=== PATIENT | male | born 1970 | race Caucasian/White ===

== ENCOUNTER 2018-07-23 05:20 | Inpatient (IN) ==
[2018-07-23] MEDS ORDERED: Morphine Inj 4 MG/ML Vial IV.PUSH PRN ×2 (10:48)
[2018-07-23] MEDS ORDERED: Acetaminophen 325 MG Tablet PO PRN ×2 (10:48)
[2018-07-23] MEDS ORDERED: Naloxone Inj 0.4 MG/ML Vial IV.PUSH PRN (10:48)
[2018-07-23] MEDS ORDERED: Dextrose 50% in Water 50 ML Vial IV.PUSH PRN (10:48)
[2018-07-23] MEDS ORDERED: Bisacodyl 10 MG Supp RECTAL PRN (10:48)
[2018-07-23] MEDS: metroNIDAZOLE 500 MG Tablet PO SCH ×2 (14:15→21:17)
[2018-07-23] MEDS: Sod Chloride 0.9% Inj 1,000 ML IV.CONT SCH ×3 (14:16→23:15)
[2018-07-23] MEDS: Ciprofloxacin 400 MG/200 ML 400 MG/200 ML PIGGYBACK IV.SIG SCH (14:17)
[2018-07-23] MEDS: Insulin NovoLOG Aspart Correctional Sugar Inj SQ SCH ×3 (14:17→21:22)
--- NOTE | 2018-07-23 15:00 | P.HPIM ---
History of Present Illness Primary Care Physician: No Primary Care Physician Chief Complaint: Abdominal pain with nausea vomiting History of Present Illness: This 48-year-old white male with a history of diabetes mellitus type 2 who presented to the emergency room with acute onset of sharp stabbing right upper quadrant abdominal pain with radiation towards his back since 8:00 last night associated with intractable nausea and nonbilious vomiting. Despite multiple doses of IV pain medication in the emergency room, patient still had persistent abdominal pain with no relief. He denies any unusual food intake over the past few weeks. He reports similar episode a month ago when he was diagnosed with cholelithiasis at [facility]. He was sent home on pain medication but had this recurrent sharp pain. He denies any symptoms of constipation or diarrhea. He denies symptoms of dysuria urinary frequency or hematuria. Diagnosis (1) Acute cholecystitis: Inpatient Certification Inpatient Certification: I certify that the inpatient services were ordered in accordance with Medicare regulations governing the order. This includes certification that hospital inpatient services are reasonable and necessary and in the case of services not specified as inpatient-only under 42 CFR 419.22(n), that they are appropriately provided as inpatient services in accordance to with the 2-midnight benchmark under 43 CFR 412.3(e) Estimated Total Length of Stay (Days): 2 Plans for Post Hospital Care: Home Review of Systems Constitutional: Reports as per HPI, Denies chills, Denies fever(s) and Denies headache(s) Eyes: Denies blurry vision, Denies change in vision and Denies eye pain Ears, Nose, Mouth, and Throat: Denies abnormal hearing, Denies headache(s), Denies mouth pain, Denies nasal congestion, Denies neck pain and Denies sore throat Cardiovascular: Denies chest pain, Denies pedal edema, Denies palpitations and Denies dyspnea Respiratory: Denies cough and Denies dyspnea Gastrointestinal: Reports as per HPI, Reports abdominal pain, Denies melena, Denies hematochezia, Denies change in bowel habits, Denies constipation, Denies loose stools, Reports nausea and Reports vomiting Musculoskeletal: Denies back pain, Denies myalgias, Denies arthralgias, Denies neck pain and Denies numbness Skin/Breast: Denies new lesions and Denies rash Neurologic: Denies abnormal hearing, Denies headache(s), Denies focal weakness, Denies memory loss and Denies numbness Psychiatric: Denies anxiety, Denies depression and Denies memory loss Endocrine: Denies cold intolerance, Denies heat intolerance and Denies palpitations Hematologic/Lymphatic: Denies easy bleeding and Denies easy bruising PMFSH History History Provided By: Patient Medical History Medical History Diabetes (Chronic) Hx of renal calculi (Chronic) Surgical History Surgical History H/O lithotripsy (Chronic) Family History Family History Mother Esophageal cancer Social History Social History Substance History: No History of Abuse Second Hand Smoke Exposure: No Smoking Status: Never smoker How Often Do You Have a Drink Containing Alcohol: Never Recent Travel in [place] within the Last 8 Weeks: No Recent Out of Country Travel within the Last 8 Weeks: No Medications and Allergies Allergies Allergy/AdvReac Type Severity Reaction Status Date / Time No Known Allergies Allergy Verified 07/23/18 05:32 Home Medications Medication Instructions Recorded Confirmed Type metformin 500 mg PO QPM 07/23/18 07/23/18 History Active Medications: Active Medications Acetaminophen (Tylenol) 650 mg PO Q4H PRN PRN Reason: Temp > 100.4 Acetaminophen (Tylenol) 650 mg PO Q6HR PRN PRN Reason: PAIN SCALE 1 TO 2 Hydrocodone Bitart/Acetaminophen (Laurel 5/325) 1 tab PO Q4H PRN PRN Reason: PAIN SCALE 3 TO 5 Hydrocodone Bitart/Acetaminophen (Laurel 7.5/325) 1 tab PO Q4H PRN PRN Reason: PAIN SCALE 6 TO 10 Last Admin: 07/23/18 14:15 Dose: 1 tab Al Hydroxide/Mg Hydroxide (Milk Of Magnesia Liq) 30 ml PO Q12H PRN PRN Reason: Mild Constipation Bisacodyl (Dulcolax Supp) 10 mg RECTAL DAILY PRN PRN Reason: SEVERE CONSITIPATION Dextrose (D50w Vial) 50 ml IV.PUSH UNSCH PRN PRN Reason: PER HYPOGLYCEMIA PROTOCOL Glucagon (Glucagon Inj) 1 mg OTHER PRN PRN PRN Reason: for Hypoglycemia Protocol Sodium Chloride (Ns Inj) 1,000 mls @ 100 mls/hr IV.CONT .Q10H [place] Last Admin: 07/23/18 14:16 Dose: 100 mls/hr Ciprofloxacin/Dextrose (Cipro 400 Mg/200 Ml Inj) 400 mg in 200 mls @ 200 mls/ hr IV.SIG Q12H [facility] Last Admin: 07/23/18 14:17 Dose: 200 mls/hr Insulin Aspart (Novolog Insulin Correctional Sugar Inj) 0 unit SQ ACHS [facility]; Protocol Last Admin: 07/23/18 14:17 Dose: Not Given Lactulose (Lactulose Liq) 30 ml PO DAILY PRN PRN Reason: SEVERE CONSITIPATION Metronidazole (Flagyl) 500 mg PO Q8HR [facility] Last Admin: 07/23/18 14:15 Dose: 500 mg Morphine Sulfate (Morphine Inj) 2 mg IV.PUSH Q3H PRN PRN Reason: PAIN 3-5; IF UABLE TO TAKE PO Morphine Sulfate (Morphine Inj) 4 mg IV.PUSH Q3H PRN PRN Reason: PAIN 6-10;IF UNABLE TO TAKE PO Naloxone HCl (Narcan Inj) 0.4 mg IV.PUSH UNSCH PRN PRN Reason: SEE LABEL COMMENTS Ondansetron HCl (Zofran Inj) 4 mg IV.PUSH Q6H PRN PRN Reason: NAUSEA OR VOMITING Sennosides (Senokot) 17.2 mg PO Q12H PRN PRN Reason: Moderate Constipation Sodium Chloride (Ns Flush) 2 ml IV.FLUSH BID [place] Sodium Chloride (Ns Flush) 2 ml IV.FLUSH PRN PRN PRN Reason: FLUSH AFTER USING IV ACCESS Physical Exam Vital signs: Last Vital Signs Temp 98.0 F 07/23/18 14:48 Pulse 73 07/23/18 14:48 Resp 20 07/23/18 14:48 BP 128/85 07/23/18 14:48 Pulse Ox 95 07/23/18 14:48 Narrative: GENERAL: Well-nourished well-developed pleasant male in no acute distress laying in bed. SKIN: Warm and dry. HEAD: Atraumatic. Normocephalic. EYES: Pupils equal and round. No scleral icterus. No injection or drainage. ENT: No nasal bleeding or discharge. Mucous membranes pink and moist. NECK: Trachea midline. No JVD. CARDIOVASCULAR: Regular rate and rhythm. RESPIRATORY: No accessory muscle use. Clear to auscultation. Breath sounds equal bilaterally. GASTROINTESTINAL: Abdomen soft, right upper quadrant abdominal pain on palpation with no rebound guarding, nondistended, normoactive bowel sounds MUSCULOSKELETAL: Extremities without clubbing, cyanosis, or edema. No obvious deformities. NEUROLOGICAL: Awake and alert to person place time. No obvious cranial nerve deficits. Motor grossly within normal limits. Five out of 5 muscle strength in the arms and legs. Normal speech. PSYCHIATRIC: Appropriate mood and affect; insight and judgment normal. Results Labs Labs: CBC showed white blood elevation 12,000 BMP reviewed with elevated sugar 146, LFTs within normal limits, lipase [address] abdomen pelvis revealed cholelithiasis moderate distended gallbladder. Small nonobstructing renal stones seen bilaterally. Small umbilical hernia containing mesenteric fat. Gallbladder ultrasound revealed echogenic liver with severe hepatic steatosis and hepatocellular dysfunction, cholelithiasis Caprini VTE Risk Assessment Caprini VTE Risk Assessment: No/Low Risk (score <= 1) Caprini Risk Assessment Model: Point Value = 1 Point Value = 2 Point Value = 3 Point Value = 5 Age 41-60 Minor surgery BMI > 25 kg/m2 Swollen legs Varicose veins or History of unexplained or recurrent spontaneous Oral contraceptives or hormone replacement Sepsis (< 1 month) Serious lung disease, including pneumonia (< 1 month) Abnormal pulmonary function Acute myocardial infarction Congestive heart failure (< 1 month) History of inflammatory bowel disease Medical patient at bed rest Age 61-74 Arthroscopic surgery Major open surgery (> 45 min) Laparoscopic surgery (> 45 min) Malignancy Confined to bed (> 72 hours) Immobilizing plaster cast Central venous access Age >= 75 History of VTE Family history of VTE Factor V Leiden Prothrombin [id number] Lupus anticoagulant Anticardiolipin antibodies Elevated serum homocysteine Heparin-induced thrombocytopenia Other congenital or acquired thrombophilia Stroke (< 1 month) Elective arthroplasty Hip, pelvis, or leg fracture Acute spinal cord injury (< 1 month) Prophylaxis Regimen: Total Risk Factor Score Risk Level Prophylaxis Regimen 0-1 Low Early ambulation 2 Moderate Order ONE of the following: *Sequential Compression Device (SCD) *Heparin 5000 units SQ BID 3-4 Higher Order ONE of the following medications: *Heparin 5000 units SQ TID *Enoxaparin/Lovenox 40 mg SQ daily (WT < 150 kg, CrCl > 30 mL/min) *Enoxaparin/Lovenox 30 mg SQ daily (WT < 150 kg, CrCl > 10-29 mL/min) *Enoxaparin/Lovenox 30 mg SQ BID (WT < 150 kg, CrCl > 30 mL/min) AND/OR *Sequential Compression Device (SCD) 5 or more Highest Order ONE of the following medications: *Heparin 5000 units SQ TID (Preferred with Epidurals) *Enoxaparin/Lovenox 40 mg SQ daily (WT < 150 kg, CrCl > 30 mL/min) *Enoxaparin/Lovenox 30 mg SQ daily (WT < 150 kg, CrCl > 10-29 mL/min) *Enoxaparin/Lovenox 30 mg SQ BID (WT < 150 kg, CrCl > 30 mL/min) AND *Sequential Compression Device (SCD) Assessment and Plan (1) Acute cholecystitis: Code(s): K81.0 - Acute cholecystitis Status: Acute Plan 43-year-old white male with a history of cholelithiasis, diabetes mellitus type 2 presents emergency room with intractable right upper quadrant abdominal pain associated with intractable nausea and vomiting despite giving multiple doses of IV pain medication in the emergency room Cholelithiasis with suspected acute cholecystitis -IV fluid hydration for supportive care, start IV Cipro and p.o. Flagyl, continue pain control with IV morphine, IV antiemetics. Obtain general surgery consultation to evaluate for lap cholecystectomy. Diabetes mellitus, type II, controlled, [id number] -due to n.p.o. status hold home metformin. Continue blood sugar monitoring with sliding scale insulin.
[2018-07-23] MEDS ORDERED: Influenza (Quadrivalent) Vaccine 0.5 ML Syringe IM ONE (16:00)
--- NOTE | 2018-07-23 17:52 | MB ---
cc: Rony Kelley MD DATE: 07/23/2018 PERSON REQUESTING CONSULTATION: Vanessa Amin MD REASON FOR CONSULTATION: Acute cholecystitis. HISTORY OF PRESENT ILLNESS: The patient is a 48-year-old male who was transferred to [facility] from [place] [facility] for acute cholecystitis. The patient developed severe epigastric pain, 8-10/10 last night around 8 p.m. The patient has never had pain like this prior, but states only previous abdominal pain was history of multiple kidney stones, of which he has had approximately 20. The patient says the pain is different than his previous kidney stones. It was brought on by fatty food. It is not relieved except for anything but strong narcotics in the emergency department. The patient underwent a workup including a CT scan, which showed significant inflammation of the gallbladder as well as a mildly elevated white blood cell count. This is concerning for acute cholecystitis and the patient was transferred for further evaluation and treatment. REVIEW OF SYSTEMS: A 12-point review of systems is conducted with the patient and is negative except for pertinent positives mentioned above in history of present illness. PAST MEDICAL HISTORY: History of kidney stones, type 2 diabetes. PAST SURGICAL HISTORY: History of lithotripsies. ALLERGIES: NO KNOWN DRUG ALLERGIES. MEDICATIONS: 1. Protonix 2. Metformin. SOCIAL HISTORY: Denies alcohol, tobacco or illicit drug use. FAMILY HISTORY: Reviewed. History of diabetes, otherwise negative. PHYSICAL EXAMINATION: VITAL SIGNS: Temperature 98.1 degrees, pulse rate of 76, respiratory rate 22, blood pressure 165/92, O2 saturation 98%. GENERAL: The patient is a well-developed, well-nourished, 48-year-old male in no acute distress. HEENT: Head is normocephalic, atraumatic. Pupils are round and reactive, accommodate to light. Sclerae are anicteric. Oral cavity are clear. Airways patent. NECK: Supple. No JVD. LUNGS: Breath sounds present bilaterally. Nonlabored breathing pattern. HEART: Regular rate and rhythm. PMI is nondisplaced. ABDOMEN: Soft, tender to palpation in the right upper quadrant. Positive Martinez sign with deep palpation and with inspiration. There are no surgical scars. No hernias. No ascites or organomegaly. BACK: No CVA tenderness. EXTREMITIES: No clubbing, cyanosis or edema. Warm and perfused. Peripheral pulses intact. NEUROLOGIC: Shows patient is awake, alert and oriented x 3. Nonfocal peripheral exam. Cranial nerves 2-12 are grossly intact. Mood, judgment and insight are intact. LABORATORY VALUES: White blood cell count 12.7, hemoglobin 14.8. Liver function tests including bilirubin and alkaline phosphatase are all within normal limits. IMAGING: CT scan of the abdomen and pelvis as well as an ultrasound both show cholelithiasis. ASSESSMENT AND PLAN: The patient is a 48-year-old male with likely early to mild acute cholecystitis. I discussed acute cholecystitis with the patient including the differential diagnosis and treatment, options including surgery and nonoperative management. I discussed laparoscopic cholecystectomy including the risks, benefits, and alternatives, as well as the procedure in detail. I discussed the recovery and answered all questions to his satisfaction. We will proceed to the operating room in the next 24-48 hours, based on the operating room availability for laparoscopic cholecystectomy. We will place an order for consent and make the patient n.p.o. after midnight, in order to give us the option of operating tomorrow based on surgeon and operating room availability. Thank you very much for this consultation. MD LEAH Riddle/celestina , 05:26 PM , 05:34 PM
[2018-07-23] MEDS ORDERED: Sodium Chlor 0.9% Inj 500 ML IV.SIG SCH (19:00)
[2018-07-23] MEDS ORDERED: Chlorhexidine Gluconate 2% 1 Pack (2 Cloths) TOPICAL ONE (19:00)
[2018-07-23] MEDS ORDERED: Metoprolol Tartrate 25 MG Tablet PO ONE (19:00)
[2018-07-24] MEDS: Ciprofloxacin 400 MG/200 ML 400 MG/200 ML PIGGYBACK IV.SIG SCH ×2 (01:00→12:28)
[2018-07-24] MEDS: metroNIDAZOLE 500 MG Tablet PO SCH ×3 (05:24→21:41)
[2018-07-24] MEDS: Morphine Inj 4 MG/ML Vial IV.PUSH PRN ×3 (08:54→21:40)
--- NOTE | 2018-07-24 09:48 | ECG ---
Date Performed: 07/24/2018 Time Performed: 04:15:03 PTAGE: 48 years EKG: Sinus rhythm NORMAL ECG NO PREVIOUS TRACING DOCTOR: Miguelito Barrios Interpretating Date/Time 07/24/2018 09:47:12
[2018-07-24] MEDS: Insulin NovoLOG Aspart Correctional Sugar Inj SQ SCH ×4 (11:07→20:43)
--- NOTE | 2018-07-24 11:29 | P.PNIM ---
Subjective Interval history: Still with right upper quadrant abdominal pain however not as severe as when she he came to the emergency room. Mild nausea no active vomiting. Did tolerate some liquids yesterday now n.p.o. for surgery. Physical Exam Vital signs: Last Vital Signs Temp 98.2 F 07/24/18 07:41 Pulse 75 07/24/18 07:41 Resp 20 07/24/18 07:41 BP 117/77 07/24/18 07:41 Pulse Ox 98 07/24/18 07:41 Intake & Output 07/22/18 07/23/18 07/24/18 07/25/18 06:59 06:59 06:59 06:59 Intake Total 2515 / 2515 1000 / 1000 Output Total 1700 / 1700 Balance 815 / 815 1000 / 1000 Weight 94.801 kg Narrative: GENERAL: Well-nourished well-developed pleasant male in no acute distress laying in bed. CARDIOVASCULAR: Regular rate and rhythm. RESPIRATORY: No accessory muscle use. Clear to auscultation. Breath sounds equal bilaterally. GASTROINTESTINAL: Abdomen soft, mild right upper quadrant abdominal pain on palpation with no rebound guarding, nondistended, normoactive bowel sounds MUSCULOSKELETAL: Extremities without clubbing, cyanosis, or edema. No obvious deformities. NEUROLOGICAL: Awake and alert to person place time. Assessment and Plan (1) Acute cholecystitis: Code(s): K81.0 - Acute cholecystitis Status: Inactive Plan 43-year-old white male with a history of cholelithiasis, diabetes mellitus type 2 presents emergency room with intractable right upper quadrant abdominal pain associated with intractable nausea and vomiting despite giving multiple doses of IV pain medication in the emergency room Cholelithiasis with suspected acute cholecystitis -IV fluid hydration for supportive care, continue IV Cipro and p.o. Flagyl, continue pain control with IV morphine, IV antiemetics. for lap cholecystectomy with general surgery. Diabetes mellitus, type II, controlled, [id number] -due to n.p.o. status hold home metformin. Continue blood sugar monitoring with sliding scale insulin. DVT prophylaxisSCDs Progress Note: Quality VTE Deep Vein Thrombosis/Pulmonary Embolism Present on Admission: No
[2018-07-24] MEDS: Sod Chloride 0.9% Inj 1,000 ML IV.CONT SCH ×2 (12:28→17:39)
[2018-07-24] MEDS ORDERED: Bupivacaine/Epinephrine Inj 0.25% 50 ML Vial ONE (13:41)
[2018-07-24] MEDS ORDERED: fentaNYL Citrate Inj 100 MCG/2 ML Ampul ONE (16:32)
[2018-07-24] MEDS ORDERED: *morphine SULFATE 4 MG/ML PERIprocedure ONLY ONE ×3 (16:39→17:20)
[2018-07-24] MEDS ORDERED: *Meperidine Inj 25 MG/ML Vial PERIprocedural Use ONLY ONE (16:46)
[2018-07-24] MEDS ORDERED: *Promethazine Inj 25 MG/ML Vial PERIprocedural use ONLY ONE (16:56)
--- NOTE | 2018-07-24 17:26 | MP ---
cc: Rony Kelley MD DATE OF OPERATION: 07/24/2018 PREOPERATIVE DIAGNOSIS: Acute cholecystitis. POSTOPERATIVE DIAGNOSIS: Acute cholecystitis. PROCEDURE PERFORMED: Laparoscopic cholecystectomy: SURGEON: Rony Kelley MD INGREDIENT HANDLER: Staff. ANESTHESIA: General. FINDINGS: No acute findings in the abdomen on diagnostic laparoscopy with the exception of some inflammatory changes of the gallbladder with a large gallstone. ESTIMATED BLOOD LOSS: Less than 10 mL. COMPLICATIONS: None. INDICATIONS FOR PROCEDURE: The patient is a 48-year-old male who developed severe epigastric abdominal pain, which prompted a presentation to the emergency room at [facility]. Workup did reveal a gallstone with significant inflammation around the gallbladder concerning for acute cholecystitis. The patient is recommended to undergo laparoscopic cholecystectomy after treatment and the risks, benefits and alternatives of surgery were discussed with the patient in detail prior to the procedure, and the patient agreed to undergo the procedure. PROCEDURE: The patient was taken to the operating room and placed in the supine position and placed under general endotracheal anesthesia. The patient's abdomen was shaved, prepped and draped in a sterile fashion. Timeout was performed. The abdomen was entered with the Jen technique with a curvilinear incision just above the umbilicus. We directly opened the fascia the midline and entered the abdomen under direct visualization and then we placed a 10 mm port. We placed the laparoscope and insufflated the abdomen. We surveyed the abdomen. There was no evidence of any complication from her injury. There was no intra-abdominal pathology with the exception of a thickened and discolored gallbladder consistent with acute cholecystitis. We initially placed three 5 mm ports in the right upper quadrant, all under direct visualization of the laparoscope. However, of note, later in the procedure, we placed a fourth 5 mm trocar in the right lower quadrant for the assistant golf coach to further retract the stomach and duodenum away from our operative field to increase visualization. We were then able to grasp the gallbladder at the fundus and retract it upward. We dissected out the gallbladder with the hook electrocautery as well as a [place] dissector. We dissected the triangle of Calot and dissected out the cystic artery, which was essentially 2 small branches, and the cystic duct. We obtained a critical view of safety. We placed double clips on the cystic duct proximal and one distal. We placed clips both proximally and distally on the cystic arteries. We divided all 3 of these structures with the laparoscopic Endo Mariaelena. Hook electrocautery was used to take the gallbladder off the gallbladder fossa without difficulty. Gallbladder was removed from the abdomen with the Endo Catch bag through the periumbilical port. We did have excellent hemostasis of the gallbladder bed after we had used some Bovie electrocautery and one area of oozing. We used suction hot mill supervisor with 1 liter of saline to suction out the right upper quadrant until all suctioning was clear. We did place a small amount of Surgicel in the gallbladder fossa, as we did have a small amount of bleeding from this, to ensure good hemostasis, although we had stopped that with the cautery. At this point, we had turned to completion of the surgery. We removed all ports under visualization of the laparoscope and expressed pneumoperitoneum. I able to close the periumbilical Jen port with multiple approximately 5 interrupted 0 Vicryl sutures at the level of the fascia transversely. We closed all the skin with 4-0 Monocryl and Dermabond. The patient was discontinued from anesthesia and taken to the PACU in stable condition. The patient tolerated the procedure well and there were no apparent complications. All counts were correct. I was present and scrubbed for the entire procedure. MD LEAH Riddle/celestnia , 04:17 PM , 04:28 PM
[2018-07-24] MEDS ORDERED: *HYDROmorphone PF Inj 1 MG/ML Ampul PERIprocedural Use ONLY ONE (17:30)
[2018-07-24] MEDS ORDERED: HYDROmorphone PF Inj 2 MG/ML Vial IV.PUSH ONE (22:50)
[2018-07-25] MEDS: Ciprofloxacin 400 MG/200 ML 400 MG/200 ML PIGGYBACK IV.SIG SCH (01:23)
[2018-07-25] MEDS: Sod Chloride 0.9% Inj 1,000 ML IV.CONT SCH ×2 (03:43→08:52)
[2018-07-25 04:01] VITALS: RESP 18; O2SAT 98
[2018-07-25] MEDS: Morphine Inj 4 MG/ML Vial IV.PUSH PRN (05:13)
[2018-07-25] MEDS: metroNIDAZOLE 500 MG Tablet PO SCH (05:13)
[2018-07-25] MEDS: Insulin NovoLOG Aspart Correctional Sugar Inj SQ SCH ×2 (08:55→13:00)
[2018-07-25 09:25] VITALS: BP 151/84; PULSE 87; TEMP 98.1
--- NOTE | 2018-07-25 09:56 | P.DS ---
Date of admission: 07/23/18 13:52 Primary care physician: No Primary Care Physician Attending physician on discharge: Torres Pizarro Anticipated date of discharge: 07/25/18 Brief History from admission: This 48-year-old white male with a history of diabetes mellitus type 2 who presented to the emergency room with acute onset of sharp stabbing right upper quadrant abdominal pain with radiation towards his back since 8:00 last night associated with intractable nausea and nonbilious vomiting. Despite multiple doses of IV pain medication in the emergency room, patient still had persistent abdominal pain with no relief. He denies any unusual food intake over the past few weeks. He reports similar episode a month ago when he was diagnosed with cholelithiasis at [facility]. He was sent home on pain medication but had this recurrent sharp pain. He denies any symptoms of constipation or diarrhea. He denies symptoms of dysuria urinary frequency or hematuria. Patient update on day of discharge: Follow up visit s/p cholecystectomy. States he is doing well. Pain is manageable. Tolerating p.o. diet. Denies SOB/ dyspnea. Denies chest pain, palpitations, headaches, dizziness. Denies fevers, chills, n/v/d. Denies dysuria. DS: Diagnosis - Discharge Diagnosis (1) Acute cholecystitis Status: Acute DS: Summary Hospital Course: 43-year-old white male with a history of cholelithiasis, diabetes mellitus type 2 presents emergency room with intractable right upper quadrant abdominal pain associated with intractable nausea and vomiting despite giving multiple doses of IV pain medication in the emergency room. Patient found to have cholelithiasis with suspected acute cholecystitis. He was given IV fluid hydration for supportive care. Patient was placed on IV Cipro and Flagyl. Pain management and antiemetics was provided. He was followed by general surgery and did lab cholecystectomy 07/24/18, by Dr. Kelley. Patient has history of diabetes type 2, controlled [id number], his missed appointment has been held during hospitalization secondary to. He was provided with insulin sliding scale with Blood sugar monitoring. He will continue his metformin once he gets home. He will follow-up with general surgery postop. Patient states he is doing well. Discussed wound care signs and symptoms that he needs to look out for. Verbalized understanding. Patient has met maximal benefits of hospitalization. Clinically stable for discharge. - Time Spent with Patient Total time spent providing and/or coordinating discharge services: Less than 30 minutes - Quality: VTE Deep Vein Thrombosis/Pulmonary Embolism Present on Admission: No Exam Vital signs: Vital Signs 07/24/18 11:52 07/24/18 16:25 07/24/18 16:40 Temperature 98.4 F 97.4 F L Pulse Rate 63 84 80 Respiratory Rate 20 20 18 Blood Pressure 127/79 162/93 H 168/90 H Pulse Oximetry 96 95 94 L 07/24/18 17:01 07/24/18 17:16 07/24/18 17:33 Temperature 97.8 F Pulse Rate 79 76 75 Respiratory Rate 18 20 20 Blood Pressure 161/87 H 163/85 H 158/82 H Pulse Oximetry 96 99 96 07/24/18 18:06 07/24/18 20:00 07/25/18 00:00 Temperature 97.5 F L 97.8 F Pulse Rate 80 69 100 H Respiratory Rate 18 20 22 Blood Pressure 133/65 136/79 135/82 Pulse Oximetry 96 96 97 07/25/18 04:00 07/25/18 08:00 Temperature 97.8 F 98.1 F Pulse Rate 66 87 Respiratory Rate 18 18 Blood Pressure 136/69 151/84 H Pulse Oximetry 98 98 Intake & Output 07/24/18 07/25/18 07/25/18 18:59 06:59 18:59 Intake Total 1200 / 1200 1979 / 1979 683 / 683 Output Total 25 / 25 1500 / 1500 Balance 1175 / 1175 480 / 480 683 / 683 Weight 94.8 kg Intake: IV 1200 / 1200 1200 / 1200 683 / 683 NS Inj 1,000 ML @ 100 mls/hr IV 1000 / 1000 1000 / 1000 683 / 683 .CONT .Q10H [facility] Rx#:[id number] Cipro 400 MG/200 ML Inj 400 mg 200 / 200 200 / 200 In 200 ml @ 200 mls/hr IV.SIG Q12H [facility] Rx#:[id number] Oral 780 / 780 Output: Urine 1500 / 1500 Estimated Blood Loss 25 / 25 Narrative: GENERAL: This is a well-nourished, well-developed patient, in no apparent distress. SKIN: Warm and dry. HEENT: Normocephalic. Pupils equal round and reactive. Nose without bleeding. Airway patent. NECK: Trachea midline. No JVD. Supple. CARDIOVASCULAR: Regular rate and rhythm without murmurs, gallops, or rubs. RESPIRATORY: Clear to auscultation. Breath sounds equal bilaterally. No wheezes , rales, or rhonchi. GASTROINTESTINAL: Abdomen soft, mildly distended. Bowel Sounds hypoactive. Lap sites clean dry and intact. MUSCULOSKELETAL: Extremities without clubbing, cyanosis, or edema. NEUROLOGICAL: Awake and alert. Oriented to time, place, person. No focal neuro deficit. Moves all extremities. Normal speech. Results Procedures completed during hospitalization: S/P laparoscopic cholecystectomy, 07/24/18 Pending studies at discharge: Pending at discharge 07/24/18 07:19 Surgical [PTH] Routine Labs on day of discharge: Labs from last 24 hours 07/25/18 07/24/18 07/24/18 08:18 20:42 16:36 POC Glucose 177 H 131 H 101 07/24/18 13:09 POC Glucose 104 Discharge Plan - Discharge Disposition Patient Disposition: Discharge Home - Discharge Condition Condition: Good - Discharge Order Discharge Orders: Discharge Order (Routine); Ordered 07/25/18 Ordered By: Clyde Chau - Physicians Team Primary Care Provider: [facility] [place] Attending Provider: Torres Pizarro Other Providers: Rony Kelley MD - Rxs /Orders / Referrals /Forms Prescriptions: New hydrocodone-acetaminophen 5-325 mg Tablet 1 tab PO Q4H PRN (Reason: acute post op pain exception ) Qty: 15 RF: 0 Continue metformin 500 mg Tablet Extended Release 24 Hr 500 mg PO QPM pantoprazole [Protonix] 40 mg tablet,delayed release (DR/EC) 40 mg PO DAILY 14 Days Qty: 14 RF: 0 Referrals: Rony Kelley MD [Physician] - See Instructions (Follow up in 5-7 Days. Schedule an appointment.) [facility] [Primary Care Provider] - See Instructions (Follow up in 3-5 Days. Schedule an appointment. If you have no primary care provider/Doctor, referral to [facility] or [facility] resource in [facility] [phone] ([facility] [phone] [facility] [phone]) - Discharge Instructions Patient Printed Instructions: Laparoscopic Cholecystectomy (DC) - Post Discharge Care Plan Care Plan Goals: Your Health Problems: Goals to Promote Your Health: * To prevent worsening of your condition * To maintain your health at the optimal level Directions to Meet Your Goals: * Take your medications as prescribed * Follow your dietary instruction * Follow activity as directed * Keep your appointments as scheduled * Take your immunizations and boosters as scheduled * If your symptoms worsen call your PCP * If no PCP go to Urgent Care or Emergency Room Smoking is dangerous to your health. Avoid second hand smoke. You may reach the 24-hour crisis hotline for domestic abuse at .
--- NOTE | 2018-07-25 10:07 | P.PNGS ---
Subjective Interval history: Ambulating in the room No issues overnight Physical Exam Vital signs: Vital Signs 07/24/18 11:52 07/24/18 16:25 07/24/18 16:40 Temperature 98.4 F 97.4 F L Pulse Rate 63 84 80 Respiratory Rate 20 20 18 Blood Pressure 127/79 162/93 H 168/90 H Pulse Oximetry 96 95 94 L 07/24/18 17:01 07/24/18 17:16 07/24/18 17:33 Temperature 97.8 F Pulse Rate 79 76 75 Respiratory Rate 18 20 20 Blood Pressure 161/87 H 163/85 H 158/82 H Pulse Oximetry 96 99 96 07/24/18 18:06 07/24/18 20:00 07/25/18 00:00 Temperature 97.5 F L 97.8 F Pulse Rate 80 69 100 H Respiratory Rate 18 20 22 Blood Pressure 133/65 136/79 135/82 Pulse Oximetry 96 96 97 07/25/18 04:00 07/25/18 08:00 Temperature 97.8 F 98.1 F Pulse Rate 66 87 Respiratory Rate 18 18 Blood Pressure 136/69 151/84 H Pulse Oximetry 98 98 Intake & Output 07/24/18 07/25/18 07/25/18 18:59 06:59 18:59 Intake Total 1200 / 1200 1979 / 1979 683 / 683 Output Total 1500 / 1500 Balance 1175 / 1175 480 / 480 683 / 683 Weight 94.8 kg Intake: IV 1200 / 1200 1200 / 1200 683 / 683 NS Inj 1,000 ML @ 100 mls/hr IV 1000 / 1000 1000 / 1000 683 / 683 .CONT .Q10H [facility] Rx#:[id number] Cipro 400 MG/200 ML Inj 400 mg 200 / 200 200 / 200 In 200 ml @ 200 mls/hr IV.SIG Q12H [facility] Rx#:[id number] Oral 780 / 780 Output: Urine 1500 / 1500 Estimated Blood Loss Narrative: Alert and awake Abd: soft; minimally tender to palpation; incisions c/d/i with skin glue Results - Labs Laboratory Results - last 24 hr 07/24/18 07/24/18 07/24/18 13:09 16:36 20:42 POC Glucose 104 101 131 H 07/25/18 08:18 POC Glucose 177 H Assessment and Plan - Plan 48 year old male POD1 lap kim -Tolerating regular diet -Pain control -DC antibiotics and IVF -GS clear for DC today -Rx for pain on the chart -Discussed with Rolando VIRGEN - Attending Attestation The exam, history, and the medical decision-making described in the above note were completed with the assistance of the mid-level provider. I reviewed and agree with the findings presented. I attest that I had a [id number] encounter with the patient on the same day, and personally performed and documented my assessment and findings in the medical record. stable postoperative clear for DC
== END 2018-07-25 15:30 | disposition home or self-care (01) | DRG 419 ==
LOC: NEDDLT 05:20 → NEPGCP 13:52 → N07 07-24 14:50
PROVIDERS: ADMIT Hospitalist; ATTEND Hospitalist
CPT/HCPCS: 74176; 76705; 80053; 81001; 82948; 82962; 83690; 83735; 85025; 85379; 88304; 90471; 90658; 90686; 90765; 90775; 93005; 96365; 96375; 99285; G0008; J0131; J0744; J1170; J1815; J1885; J2175; J2250; J2270; J2550; J3010; J7030; Q2038